=== PATIENT | female | born 1955 | race Caucasian/White ===

== ENCOUNTER 2018-09-10 10:35 | Emergency (ER) | payer BC, OTHER ==
[2018-09-10 11:08] VITALS: BP 157/84
--- NOTE | 2018-09-10 11:15 | UC ---
Ear Complaint HPI - HPI Summary HPI Summary: 63 yo female presents with b/l ear fullness, popping, and muffled hearing for the last 4-5 days. She tells me that about 1 week ago she got over a cold and some sinus congestion. She has not been taking anything OTC. Denies fever, chills, sore throat, cough, SOB, chest pain, headache, or dizziness. - History of Current Complaint Chief Complaint: UCEar Stated Complaint: EAR PAIN Time Seen by Provider: 09/10/18 11:14 Hx Obtained From: Patient Severity Currently: Mild Pain Intensity: 1 Pain Scale Used: 0-10 Numeric - Allergies/Home Medications Allergies/Adverse Reactions: Allergies Allergy/AdvReac Type Severity Reaction Status Date / Time No Known Allergies Allergy Verified 09/10/18 11:09 PMH/Surg Hx/FS Hx/Imm Hx Endocrine History: Dyslipidemia Cardiovascular History: Hypertension - Surgical History Surgical History: Yes Surgery Procedure, Year, and Place: partial hysterectomy - Social History Occupation: Employed Full-time Lives: With Family Alcohol Use: Weekly Substance Use Type: None Smoking Status (MU): Never Smoked Tobacco Review of Systems Constitutional: Negative Skin: Negative Eyes: Negative ENT: Ear Ache Respiratory: Negative Cardiovascular: Negative Gastrointestinal: Negative Neurovascular: Negative Neurological: Negative Psychological: Negative All Other Systems Reviewed And Are Negative: Yes Physical Exam - Summary Physical Exam Summary: GENERAL: NAD. WDWN. No pain distress. SKIN: No rashes, sores, lesions, or open wounds. HEENT: Head: AT/NC Eyes: EOM intact. Conjunctiva clear without inflammation or discharge. Ears: Hearing grossly normal. Clear fluid behind b/l TMs. TMs intact , no bulging, erythema, or edema. Nose: Nasal mucosa pink and moist. NTTP maxillary and frontal sinus. Throat: Posterior oropharynx without exudates, erythema, or tonsillar enlargement. Uvula midline. NECK: Supple. Nontender. No lymphadenopathy. CHEST: CTAB. No r/r/w. No accessory muscle use. Breathing comfortably and in no distress. CV: RRR. Without m/r/g. Pulses intact. Cap refill <2seconds NEURO: Alert. PSYCH: Age appropriate behavior. Triage Information Reviewed: Yes Vital Signs: Initial Vital Signs Temp 98.3 F 09/10/18 11:05 Pulse 72 11/04/18 11:05 Resp 18 09/10/18 11:05 BP 157/84 09/10/18 11:05 Pulse Ox 97 09/10/18 11:05 Vital Signs Reviewed: Yes Ear Complaint Course/Dx - Course Course Of Treatment: Suspect eustacian tube dysfunction. Advised to try OTC mucinex, flonase, and allergy medicine. F/u if no relief or new symptoms. - Differential Dx/Diagnosis Provider Diagnoses: Eustacian tube dysfunction Discharge - Sign-Out/Discharge Documenting (check all that apply): Patient Departure All imaging exams completed and their final reports reviewed: No Studies - Discharge Plan Condition: Stable Disposition: HOME Referrals: Emily Celestin MD [Primary Care Provider] - Additional Instructions: If you develop a fever, shortness of breath, chest pain, new or worsening symptoms - please call your PCP or go to the ED. Your blood pressure was high at todays visit. Please see your primary provider within 4 weeks for recheck and re-evaluation. 1) Please try over the counter Mucinex, Flonase, and an allergy medicine such as Zyrtec or Claritin. - Billing Disposition and Condition Condition: STABLE Disposition: Home
== END 2018-09-10 11:23 | disposition home or self-care (01) ==
LOC: UCEAST 10:35
DX: H69.93 Unspecified Eustachian tube disorder, bilateral (principal)
CPT/HCPCS: 99211; G0463